=== PATIENT | female | born 1985 | race Caucasian/White ===

== ENCOUNTER 2024-10-05 14:01 | Emergency (ER) | payer OTHER, SELFPAY ==
[2024-10-05 14:10] VITALS: BP 130/71; PULSE 73; RESP 18; TEMP 36.4; O2SAT 100
--- NOTE | 2024-10-05 14:12 | ED.WOUNDLAC ---
HPI - Wound/Laceration General Chief Complaint: Wound/Laceration Stated Complaint: Laceration to Left Index Finger Time Seen by Provider: 10/05/24 14:12 Source: patient and RN notes reviewed Mode of arrival: ambulatory Limitations: no limitations History of Present Illness HPI narrative: 39-year-old female presents Express Care complaining of laceration left index finger. Patient states she was at work and while at lunch she was grabbing a plate of the cabinet when the plate fell and shattered slicing her left index finger. Patient denies any other injuries. Patient tetanus is not up-to-date. Patient denies any numbness or tingling or any other injuries. 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 Related Data Allergies Allergy/AdvReac Type Severity Reaction Status Date / Time iohexol (From contrast - CT, Allergy Intermediate Hives Verified 10/05/24 14:30 X-RAY) Penicillins Allergy Unknown rash Unverified 10/05/24 14:30 Review of Systems Review of Systems: CONSTITUTIONAL: Denies fever, chills, or sweats. EYES: Denies visual changes, redness, or discharge. ENT: Denies rhinorrhea, congestion, sore throat, or otalgia. CARDIOVASCULAR: Denies chest pain, palpitations, or edema. RESPIRATORY: Denies cough or dyspnea. GASTROINTESTINAL: Denies abdominal pain, nausea, vomiting, or diarrhea. GENITOURINARY: Denies dysuria or hematuria. SKIN: Denies rash or itching. Positive for laceration. MUSCULOSKELETAL: Denies back pain, joint pain, or myalgia. NEUROLOGIC: Denies headache, numbness, or weakness. PSYCHIATRIC: Denies anxiety or depression. All other systems reviewed are negative, except as documented in HPI. PMFSH Comments At the time of my signature, I reviewed and agree with the nursing past medical, surgical, social, and family history. There is no relevant family history pertinent to the patient complaint. Exam Narrative: GENERAL: This is a well-nourished, well-developed adult, in no apparent distress. They are non ill-appearing, nontoxic appearing. HEAD: normocephalic, atraumatic. EYES: Sclera clear/white. Conjunctiva normal. Vision is grossly intact. Extraocular movements intact EARS: External ears normal, Hearing grossly intact. NOSE: External nose normal THROAT: Mucous membranes moist, NECK: Neck supple, CARDIOVASCULAR: Regular rate and rhythm RESPIRATORY: Respiratory rate normal, respiratory effort nonlabored, no respiratory distress SKIN: Left index finger: Laceration to the palmar surface that is medial to the PIP joint measuring approximately 1 cm. Patient is able to flex and extend her left index finger against resistance at the PIP, DIP, and MCP joint. Normal range of motion of left index finger. Capillary refill less 2 seconds. Neurovascular status intact distal injury. Left radial pulse 2 +and palpable. Patient can make a fist, stop sign, okay sign, thumbs-up sign. Radial ulnar nerve distribution intact. Nail is intact. NEURO: awake, alert, and oriented to person, place and time. There were no obvious focal neurologic abnormalities. EXTREMITIES: No joint tenderness, effusion, or edema noted. Course Course Emergency Course: Portions of this record may have been created with voice recognition software Level of Care: Express Care Visit Vital Signs Vital signs: Vital Signs Temperature 97.6 F 10/05/24 14:10 Pulse Rate 73 10/05/24 14:10 Respiratory Rate 18 10/05/24 14:10 Blood Pressure 130/71 10/05/24 14:10 Pulse Oximetry 100 10/05/24 14:10 Oxygen Delivery Room Air 10/05/24 14:10 Temperature 97.6 F 10/05/24 14:10 Pulse Rate 73 10/05/24 14:10 Respiratory Rate 18 10/05/24 14:10 Blood Pressure 130/71 10/05/24 14:10 Pulse Oximetry 100 10/05/24 14:10 Oxygen Delivery Room Air 10/05/24 14:10 Reviewed Procedures Laceration Laceration 1: Date: 10/05/24 Time: 14:15 Site: hand (Index finger) Side (If applicable): left Size (cm): 1 Description: linear Depth: simple, single layer Local Anesthetic: lidocaine 1% Amount of anesthesia used (mL): 2 Pre-repair: wound explored and irrigated extensively ====== Skin Level ====== Skin layer closed with: nylon Size (cm): 5-0 Number of sutures: 3 Technique: simple, interrupted ====== Subcutaneous Layer ====== ====== Muscle Layer ====== ====== Tendon Layer ====== Dressing: Nonadherent dressing. MDM - Wound/Laceration MDM Narrative Medical decision making narrative: Successful laceration repair left index finger. Neuro vascular status intact distal to the injury. No evidence of tendon injury. Nail bed is intact. Normal function of left index finger. Report flex lead treat with doxycycline, patient has allergy to penicillin is unsure if she has ever had a cephalosporin. Patient's tetanus is updated today. Discussed physical exam findings. Advised supportive measures and signs/symptoms to go to the ER. Pt is appropriate for outpt treatment and f/u. Differential Diagnosis Differential diagnosis: Likely laceration, abrasion, avulsion of skin and other (Tendon injury) Critical Care Time Critical Care Time Critical Care Time: No Discharge Plan Discharge Clinical Impression: Finger laceration Patient Disposition: Home Condition: Stable Instructions: Antibiotic Form, Care For Your Stitches (DC), Finger Laceration (ED) Additional Instructions: Your sutures need to be removed in 10-14 days. ?Wear the dressing that has been applied for the first 24 hours to allow a scab to start forming. ?After this, you may remove and wash as normal with mild soap and water. Do not soak or scrub the wound. Avoid dirty water to the wound has healed completely. Do NOT wash with peroxide or alcohol. Apply Vaseline daily. Keep the wound dry covered with a non adherent dressing such as a Band-Aid. Take doxycycline as directed. Please wear sunscreen if her going to be outside while taking doxycycline. Tylenol or ibuprofen as needed for pain. Go to ER any signs of infection such as redness, swelling, increased pain, or drainage. ?Follow-up with hand specialist if you develops any numbness tingling, or finger dysfunction. Patient Language: Indonesian Prescriptions: New doxycycline monohydrate 100 mg capsule 100 mg PO BID 7 Days Qty: 14 0RF Follow-up/Referrals: Jeovanny Nino MD [Physician] - Harms,German Padron M.D. [Primary Care Provider] - Time of Disposition: 14:48
--- OUTSIDE RECORDS SUMMARY | 2024-10-05 14:13 | XMS_ITS | Encounter Summary ---
Author Organization [facility] Address [address] [place] [id number] Care Team Providers Care Fruit Room Hand Name Role Phone German Ndiaye MD Primary Care Provider [phone] Encounter Details Date Type Department Care Team (Late st Contact Info) Description 12/29/2023 [facility] Message Enc [address] [address] Lorie Perez, [address] [place] [address] Visit Follow Up Social History Tobacco Use Types Packs/Day Years Used Date Smoking Tobacco: Never Smokeless Tobacco: Never Alcohol Use Standard Drinks/Week Comments Yes 0 (1 standard drink = 0.6 oz pur e alcohol) Occasionally Comments Unknown Sex and Gender Information Value Date Recorded Sex Assigned at Not on file Legal Sex Female 4:25 PM [employer] Gender Identity Not on file Sexual Orientation Not on file documented as of this encounter Plan of Treatment Not on file documented as of this encounter Visit Diagnoses Not on filedocumented in this encounter Care Teams Fruit Room Hand Relationship Specialty Start Date End Date [place] [address] PCP - General INTERNAL MEDICINE 12/29/23 documented as of this encounter
--- OUTSIDE RECORDS SUMMARY | 2024-10-05 14:13 | XMS_ITS ---
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
--- OUTSIDE RECORDS SUMMARY | 2024-10-05 14:13 | XMS_ITS | Clinical Summary ---
Author Organization [facility] [address] Address [address] [place] [address] Phone Care Team Providers Care Retail Salesworker Name Role Phone German Ndiaye MD Primary Care Provider [phone] iDmple Pickett RN Unavailable [phone] Allergies Active Allergy Reactions Criticality Noted Date Comments Iodinated Contrast Media Hives Medium 09/27/2019 Penicillin G Penicillins Medications melatonin 5 mg tablet Take 1 tablet (5 mg total) by mouth as needed Active acetaminophen-as pirin-caffeine (EXCEDRIN MIGRAINE) 250-250-65 mg per tablet Take 1 tablet by mouth as needed Active Active Problems Problem Noted Date Diagnosed Date Sebaceous cyst 08/03/2024 Assessment & Plan (08/03/2024 9:07 AM CDT): Given the increase in size we will set the patient up for excision. We have offered her options of doing this in the office under local anesthetic or in the hospital with some light sedation. She is comfortable just doing this in the office. We will set her up for this. We have discussed postoperative restrictions. All questions answered. Class 1 obesity due to exces s calories without serious comorbidity with body mass index (BMI) of 31.0 to 31.9 in adult 08/31/2023 Assessment & Plan (08/31/2023 3:27 PM CDT): Discussed monitoring portion sizes and better tracking intake. Briefly reviewed total daily energy expenditure encouraged her to increase dietary protein. She prefers to avoid any medications used for weight loss. Will check thyroid function testing Annual physical exam 10/28/2020 Assessment & Plan (08/31/2023 3:27 PM CDT): Preventive exam; reviewed recommended preventive screenings and vaccinations. Encourage annual flu vaccine. Wear sunscreen/protective clothing when outdoors. Following with shoe dyer annually. Assessment & Plan (10/28/2020 2:14 PM CDT): Pap last month Mammogram at age 40 No fam hx of breast/colon ca. Vaccinated for covid-19 Discussed influenza vaccine Rectus diastasis of lower abdomen 10/28/2020 Assessment & Plan (10/28/2020 2:13 PM CDT): Previously evaluated by plastics for small umbilical hernia. No surgical intervention required. Patient would like to first try core strengthening exercises and circuit training at the gym. Discussed benefits of PT evaluation. Patient will notify office if/when she would like a PT referral. Encounter for screening for lipid disorder 10/28 Assessment & Plan (08/31/2023 3:27 PM CDT): Cholesterol is well controlled. Reviewed labs with patient Assessment & Plan (10/28/2020 2:12 PM CDT): Reviewed previous labs. Will check labs today Discussed focusing on limiting bad fats in the diet and using exercise as a way to improve cholesterol. Reviewed exercise recommendations and red flags warranting further evaluation. 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 Continues to avoid NSAIDs. Blood pressure is well controlled. Will continue to monitor Assessment & Plan (10/28/2020 2:15 PM CDT): Follows with [facility] transplant center every 6 months. Resolved Problems Problem Noted Date Diagnosed Date Resolved Date BMI 29.0-29.9,adult 10/28/2020 08/31/19 24 Assessment & Plan (10/28/2020 2:16 PM CDT): Discussed healthy diet and importance of regular physical activity. Encounters Date Type Department Care Team Description 08/17/2024 11:10 AM CDT - 08/17/2024 11:59 PM CDT Hospital Encounter [address] [address] Sebaceous cyst Discharge Disposition: Discharge to home or self care 08/17/2024 10:40 AM CDT Procedure visit [address] [place] [address] Primo Rubalcava MD Sebaceous cyst (Primary Dx) 08/03/2024 8:50 AM CDT Office Visit [address] [place] [address] rPimo Rubalcava MD Sebaceous cyst 07/17/2024 8:36 AM CDT - 07/17/2024 11:59 PM CDT Hospital Encounter [facility] [address] [place] [address] Sebaceous cyst of left axilla Discharge Disposition: Discharge to home or self care 07/17/2024 Results [facility] [address] [id number] German Ndiaye MD Axillary Left Non-Breast from Last 3 Months Immunizations Immunization Administration Dates Next Due Influenza, Quadrivalent, Spl it, Preservative Free, Intramuscular 12/31/2015 Influenza, Trivalent, IM (MDV) 12/13/2008 Influenza, Unspecified 06/14/2023(Deferr ed: Patient Refused),01/14/2023(Deferred: Patient Refused),12/13/2021(Deferred: Patient Refused),10/28/2020(Deferred: Patient Refused),03/15/2020(Deferred: Patient Refused),03/15/2019(Deferred: Patient Refused),03/15/2018(Deferred: Patient Refused),12/10/2017(Deferred: Patient Refused),03/15/2017(Deferred: Patient Refused),12/13/2016 Tdap 05/05/2014,02/01/2009 Surgical History Surgery Date Site/Laterality Comments OTHER SURGICAL HISTORY Teeth extraction OTHER SURGICAL HISTORY 03/15/2009 - 03/14/2010 : 6 hr labor OTHER SURGICAL HISTORY 03/15/2014 - 03/14/2015 : 9 hr labor NEPHRECTOMY 03/15/2019 - 03/14/2020 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 .; Outcome: 37W4D week 7lb(s) 13 oz Male Family History Medical History Relation Name Comments Diabetes Father Remington Diabetes mellit us; Hyperlipidemia Father Remington High choleste rol; Hypertension Father Remington Hypertension; Diabetes Maternal Grandmother Diabete s mellitus; Hyperlipidemia Maternal Grandmother High cholesterol; Hypertension Mother Maria Guadalupe Hypertension; Breast cancer Other 1 Cancer, breast ; Other Other 2 No family histo ry of Cancer, endometrial; Other Other 3 No family histo ry of Ovarian cancer; Hypertension Other 4 Family history of Hypertension; RED 10/12/2013 -Mother, father, MGM, PGF Osteoporosis Other 5 Family history of Osteoporosis; RED 10/12/2013 -Mother, MGM Prostate cancer Paternal Grandfather Canc er, prostate; Relation Name Status Comments Father Remington Maternal Grandmother Mother Maria Guadalupe Other 1 Other 2 Other 3 Other 4 Other 5 Paternal Grandfather Social History Tobacco Use Types Packs/Day Years Used Date Smoking Tobacco: Never Smokeless Tobacco: Never Tobacco Cessation:Counseling Given: Not Answered Alcohol Use Standard Drinks/Week Comments Not Currently 1 (1 standard drink = 0.6 oz pur e alcohol) Social Connection and Isolation Panel [NHANES] A nswer Date Recorded In a typical week, how many times do you talk on the phone with family, friends, or neighbors? Three times a week 11/10/19 How often do you get togethe r with friends or relatives? Twice a week 11/10/2019 How often do you attend chur or mu-ism services? 1 to 4 times per year 11/10/2019 Do you belong to any clubs o r organizations such as evangelical groups, unions, fraternal or athletic groups, or school groups? No 11/10/2019 How often do you attend meet ings of the clubs or organizations you belong to? Never 11/10/2019 Are you , , di vorced, , never , or living with a partner? 11/10/2019 Overall Financial Resource Strain (CARDIA) Answe r Date Recorded How hard is it for you to pa y for the very basics like food, housing, medical care, and heating? Not hard at all 11/10/2019 PHQ-2 Answer Date Recorded PHQ-2 Total Score (If total score is 3 or more points, staff should administer the PHQ-9) 0 08/31/2023 Hunger Vital Sign Answer Date Recorded Within the past 12 months, y ou worried that your food would run out before you got the money to buy more. Never true 11/10/19 20 Within the past 12 months, t he food you bought just didn't last and you didn't have money to get more. Never true 11/10/2019 PRAPARE - Transportation Answer Date Re corded In the past 12 months, has l ack of transportation kept you from medical appointments or from getting medications? No 10/14 In the past 12 months, has l ack of transportation kept you from meetings, work, or from getting things needed for daily living? 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 Gender Identity Not on file Sexual Orientation Straight 05/23/2019 10 :35 PM CDT Occupation Industry Job Start Date Job End Date RN Not on file Not on file Not on file Obstetrics History Para Term AB IAB SAB Ectopic Multiple Livin g Live Births 2 2 2 0 0 2 Date Outcome GA Total Labor Labor/2nd/3rd Weight Sex Type Anes PTL Martha A1 A5 Name Clin Term Term Last Filed Vital Signs Vital Sign Reading Time Taken Comments Blood Pressure 134/87 08/17/2024 10:39 AM CDT Pulse 72 08/17/2024 10:39 AM CDT Temperature 37 C (98.6 F) 08/17/2024 10:39 AM CDT Respiratory Rate 16 08/31/2023 2:34 PM CDT Oxygen Saturation 98% 08/03/2024 8:39 AM CDT Inhaled Oxygen Concentration - - Weight 93.7 kg (206 lb 8 oz) 08/03/2024 8:39 AM CDT Height 170.2 cm (5' 7) 08/03/2024 8:39 AM CDT Body Mass Index 32.34 08/03/2024 8:39 AM CDT Plan of Treatment Health Maintenance Due Date Last Done Comments Hepatitis B Screening 05/16/2003 Pneumococcal vaccine <65 (1 of 2 - PCV) 2004 Zoster Vaccine (1 of 2) 2004 Covid-19 Vaccine (3 - Moderna risk series) 05/01/2020 04/03/2020, 03/06/2020 DTaP/Tdap/Td Vaccine (3 - Td or Tdap) 05/05/2024 05/05/2014, 02/01/2009 Depression Screening 08/30/2024 08/31/2023, 10/28/2020, 08/22/2019, Additional history exists Influenza Vaccine (#1) 2024 7, 12/31/2015, 12/13/2008 Regular Well Visit/Exam 18-64 01/13/2025 01/14/2024, 01/06/2023, 10/15/2021, Additional history exists Cervical Cancer Screening 10/15/2026 10/15/2021, Hepatitis C Screening Completed 10/16/2019 , 05/22/2019, 10/13/2013 HPV Vaccines Aged Out No longer eligi ble based on patient's age to complete this topic Varicella Vaccines Discontinued Procedures Procedure Name Priority Date/Time Associated Diagnosis Comments SURGICAL PATHOLOGY Routine 08/17/2024 12 :17 PM CDT Sebaceous cyst US AXILLARY NON-BREAST LEFT Schedule Routine, Read Routine (OP Routine) 07/17/2024 9:06 AM CDT Sebaceous cyst of left axilla PAP AND HIGH RISK HPV, REFLEX TO GENOTYPING Routine 10/15/2021 12:39 PM CDT Screening for malignant neoplasm of the cervix HEPATITIS C ANTIBODY Routine 10/16/2019 7:55 AM CDT Kidney donor from Last 3 Months or Most Recently Relevant to Health Maintenance Results * Surgical pathology (08/17/2024 12:17 PM CDT) Tissue (Skin - Cyst / Tag / Debridement) 08/17/2024 12:17 PM CDT 08/18/2024 12:17 PM CDT Narrative PATHOLOGY CH - 08/21/2024 11:26 AM CDT EPIC results best viewed via link to PDF [facility] Department of Pathology [address] [place] [id number] Note to Patients: This report may contain a detailed description of human tissue sent by a health care provider to the laboratory for pathologic evaluation. The content of this report is essential for diagnosis and may provide important critical findings. This information may be unfamiliar to patients to review without a medical professional present. It is advised that the patient review this report in the presence of a health care provider who can answer questions and explain the details. Final Report Patient Name: NICKI SMITH Address: [address] [place] [address] Gender: F : 1985 (Age: 39) Service: Location: [facility] #: [id number] Patient Type: SPECIMEN Taken: 08/17/2024 Received: 08/18/2024 Accessioned: 08/18/2024 Reported: 08/21/2024 Physician(s):Primo Rubalcava MD Diagnosis: Cyst, left armpit, excision: - Consistent with epidermal inclusion cyst John Rosales M.D. Report Electronically Reviewed and Signed Out By John Rosales M.D. 08/21/2024 11:26:42 Specimen(s) Received: A: Left axilla Microscopic Description: Microscopic examination substantiates the above diagnosis. Clinical History: Sebaceous cyst Procedure: skin, excision Gross Description: Received in a single formalin filled container labeled with NICKI LUIS and cyst left armpit. It is an elliptical shaped piece of pale houston skin measuring 1 x 0.6 cm with underlying fat measuring 1 cm. A intact cyst with [place] waxy contents is present measuring 6 mm. All in 1 cassette. Anatoliy Worlye R.N. P.Neto./Ronaldo Jeffery M.D. REPORT IMAGES AND SCANNED DOCUMENTS, IF INCLUDED, ONLY VIEWABLE IN PDF VERSION OF REPORT The performance characteristics of some immunohistochemical stains, fluorescence in-situ hybridization tests and immunophenotyping by flow cytometry cited in this report (if any) were determined by the Surgical Pathology Department at [facility] as part of an ongoing manager of quality program and in compliance with federally mandated regulations drawn from the Clinical Laboratory Improvement Act of 1988 (CLIA '88). Some of these tests rely on the use of analyte specific reagents and are subject to specific labeling requirements by the US Food and Drug Administration. Such diagnostic tests may only be performed in a facility that is certified by the Department of Health and Human Services as a high complexity laboratory under CLIA '88. The FDA has determined that such clearance or approval is not necessary. This test is used for clinical purposes. It should not be regarded as investigational or for research. Nevertheless, federal rules concerning the medical use of analyte specific reagents require that the following disclaimer be attached to the report: This test was developed and its performance characteristics determined by the Surgical Pathology Department [facility]. It has not been cleared or approved by the U. S. Food and Drug Administration. Note for decalcified specimens: This assay has not been validated on decalcified tissues. Results should be interpreted with caution given the possibility of false negativity on decalcified specimens Primo Rubalcava MD LAB PATHOLOGY OR DERABLES Final Result Performing Organization Address City/State/[facility] [place] Phone Number PATHOLOGY [address] [place] [address] * US Axillary Left Non-Breast (07/17/2024 9:06 AM CDT) Anatomical Region Laterality Modality Upper Extremities Left Ultrasound 07/17/2024 12:1 9 PM CDT Impressions 07/17/2024 12:19 PM CDT Complex cystic lesion within the skin most likely represents a sebaceous cyst and is benign. Clinical correlation advised. Electronically signed by: Daysi Landon M.D. Narrative 07/17/2024 12:19 PM CDT US AXILLARY NON-BREAST LEFT HISTORY: left axillary ultrasound. TECHNIQUE: Longitudinal transverse real-time scans are obtained for the region of concern left axilla. COMPARISON: 12/16/2017. FINDINGS: Scanning of the region of interest demonstrates a mixed echotexture lesion within the skin measuring 7 mm x 2 mm x 4 mm. A tract to the skin surface is not confidently visualized. There is no evidence of color flow. No other sonographic abnormalities are appreciated. Procedure Note Daysi Landon MD - 07/17/2024 US AXILLARY NON-BREAST LEFT HISTORY: left axillary ultrasound. TECHNIQUE: Longitudinal transverse real-time scans are obtained for the region of concern left axilla. COMPARISON: 12/16/2017. FINDINGS: Scanning of the region of interest demonstrates a mixed echotexture lesion within the skin measuring 7 mm x 2 mm x 4 mm. A tract to the skin surface is not confidently visualized. There is no evidence of color flow. No other sonographic abnormalities are appreciated. IMPRESSION: Complex cystic lesion within the skin most likely represents a sebaceous cyst and is benign. Clinical correlation advised. Electronically signed by: Daysi Landon M.D. us German Ndiaye MD IMG US PROCEDURES Final R esult * Pap and High Risk HPV, reflex to Genotyping (10/15/2021 12:39 PM CDT) Thin prep (Pap test) 10/15/2021 12:39 PM CDT 10/15/2021 12:39 PM CDT Narrative PATHOLOGY CH - 10/20/2021 11:21 AM CDT [facility] Department of Pathology [address] [place] [id number] Final Report with Addendum Note to Patients: This report may contain a detailed description of human tissue sent by a health care provider to the laboratory for pathologic evaluation. The content of this report is essential for diagnosis and may provide important critical findings. This information may be unfamiliar to patients to review without a medical professional present. It is advised that the patient review this report in the presence of a health care provider who can answer questions and explain the details. Patient Name: NICKI SMITH Address: [address] [place] [address] Gender: F : 1985 (Age: 36) Service: Laboratory Location: Lab [facility] #: [id number] Patient Type: Ref Lab Taken: 10/15/2021 Received: 10/15/2021 Accessioned:: 10/16/2021 Reported: 10/20/2021 Physician(s): MD Nicki Villegas MD Diagnosis: Source of Specimen: SCREENING THIN PREP IMAGED PAP w/ HPV Specimen Adequacy: - Satisfactory for evaluation; endocervical/transformation zone component present General Category: - Negative for intraepithelial lesion or malignancy MICHAEL Parra(ASCP) Report Electronically Reviewed and Signed Out By MICHAEL Parra(ASCP) 10/20/2021 11:21:51Addenda: HPV Test Interpretation NEGATIVE for types 16, 18, 31, 33, 35, 39, 45, 51, 52, 56, 58, 59, 66 and 68. Test performed utilizing Gen-Probe Aptima assay. MICHAEL Balderrama(ASCP)Report Electronically Reviewed and Signed Out By MICHAEL Balderrama(ASCP) 10/16/2021 16:02:57 Specimen(s) Received: A: SCREENING THIN PREP IMAGED PAP w/ HPV Clinical History: Menstrual History: Previous Negative Pap: 05/2017 The Pap test is a screening test used to aid in the detection of cervical cancer and its precursors. It should not be the sole means by which malignant and premalignant lesions are diagnosed. Both false negative and false positive results may occur. It also has poor sensitivity for the detection of endometrial lesions and should not be used to evaluate suspected endometrial abnormalities. For these reasons it is most important to obtain Pap tests at regular intervals. The performance characteristics of some immunohistochemical stains, fluorescence in-situ hybridization tests and immunophenotyping by flow cytometry cited in this report (if any) were determined by the Surgical Pathology Department at [facility] as part of an ongoing manager of quality program and in compliance with federally mandated regulations drawn from the Clinical Laboratory Improvement Act of 1988 (CLIA '88). Some of these tests rely on the use of analyte specific reagents and are subject to specific labeling requirements by the US Food and Drug Administration. Such diagnostic tests may only be performed in a facility that is certified by the Department of Health and Human Services as a high complexity laboratory under CLIA '88. The FDA has determined that such clearance or approval is not necessary. This test is used for clinical purposes. It should not be regarded as investigational or for research. Nevertheless, federal rules concerning the medical use of analyte specific reagents require that the following disclaimer be attached to the report: This test was developed and its performance characteristics determined by the Surgical Pathology Department [facility]. It has not been cleared or approved by the U. S. Food and Drug Administration. Nicki Snatoyo MD LAB CYTOLOGY ORDERABL ES Final Result PATHOLOGY [address] [place] [address] * Hepatitis C antibody (10/16/2019 7:55 AM CDT) Hep C Ab Nonreactive Nonreactive [facility] Comment:Antibodies to HCV no t detected. Does NOT exclude the possibility of recent exposure to HCV. Blood specimen (specimen) 10/16/2019 7:55 AM CDT 10/16/2019 8:34 AM CDT Asael Contreras MD LAB MICROBIOLOGY - GENERAL ORDERABLES Edited Result - Final Performing Organization Address City/[facility] de Phone Number [facility] Department [place] [address] from Last 3 Months or Most Recently Relevant to Health Maintenance Insurance [employer] [facility] [employer] Care Teams Retail Salesworker Relationship Specialty Start Date End Date German Ndiaye MD [address] [place] [address] PCP - General Family Medicine 06/02/17 Dimple Pickett, RN [address] [address] [place] 04/14/19
--- OUTSIDE RECORDS SUMMARY | 2024-10-05 14:13 | XMS_ITS | Clinical Summary ---
Author Organization [facility] Address [address] [place] [id number] Care Team Providers Care Sales And Marketing Assistant Name Role Phone German Ndiaye MD Primary Care Provider [phone] Allergies Active Allergy Reactions Criticality Noted Date Comments Iodine Hives 12/29/2023 Nsaids Other (see comment) Medium 12/29/2023 Refrain from administering due to history of only having 1 kidney Penicillins Rash Medium 12/29/2023 Medications methylPREDNISol one, FLAVIA, (MEDROL DOSEPAK) 4 MG tabletIndicatio ns:Patellofemor al pain syndrome of right knee 4 mg Oral Tablet Therapy Pack. 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 Immunizations Immunization Administration Dates Next Due MODERNA COVID-19 (12+) MRNA, LNP-S, PF, 100 MCG/ 0.5 ML DOSE 04/03/2020,03/06/2020 Social History Tobacco Use Types Packs/Day Years Used Date Smoking Tobacco: Never Smokeless Tobacco: Never Tobacco Cessation:Counseling Given: Not Answered Alcohol Use Standard Drinks/Week Comments Yes 0 (1 standard drink = 0.6 oz pur e alcohol) Occasionally Comments Unknown Sex and Gender Information Value Date Recorded Sex Assigned at Not on file 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 Gender Identity Not on file Sexual Orientation Not on file Last Filed Vital Signs Vital Sign Reading Time Taken Comments Blood Pressure - - Pulse - - Temperature - - Respiratory Rate - - Oxygen Saturation - - Inhaled Oxygen Concentration - - Weight 95.3 kg (210 lb) 12/29/2023 1:28 PM CDT Height 170.2 cm (5' 7) 12/29/2023 1:28 PM CDT Body Mass Index 32.89 12/29/2023 1:28 PM CDT Plan of Treatment Health Maintenance Due Date Last Done Comments Cervical Cancer Screening Pa p Smear (Age 30 to 64) Every 3 Years 1985 Annual Physical 1988 Hepatitis C 05/16/2003 Hepatitis B Vaccines (1 of 3 - 19+ 3-dose series) 2004 HPV Vaccines (1 - 3-dose SCD M series) 2012 Cervical Cancer Screening Pa p with HPV Testing (Age 30 to 64) Every 5 Years 05/16/2015 Cervical Cancer Screening wi th HPV 05/16/2015 COVID-19 Vaccine ( - 2023-2 5 season) 2023 04/03/2020, 03/06/2020 DTaP, Tdap and Td Vaccines ( 3 - Td or Tdap) 05/05/2024 05/05/2014, 02/01/2009 Meningococcal B Vaccine Aged Out No l onger eligible based on patient's age to complete this topic Meningococcal Vaccine Aged Out No bozena bridgette eligible based on patient's age to complete this topic Pneumococcal Vaccine: Pediatrics (0 to 5 Years) and At-Risk Patients (6 to 49 Years) Aged Out No longer eligible b ased on patient's age to complete this topic RSV Immunizations Under 20 Months Aged Out No longer eligible b ased on patient's age to complete this topic Insurance [facility] Care Teams Sales And Marketing Assistant Relationship Specialty Start Date End Date German Ndiaye MD [address] [place] [address] PCP - General INTERNAL MEDICINE 12/29/23
--- OUTSIDE RECORDS SUMMARY | 2024-10-05 14:13 | XMS_ITS | Clinical Summary ---
Author Organization [facility] [employer] Address [address] [place] [address] Care Team Providers Care Form Builder Helper Name Role Phone German Ndiaye MD Primary Care Provider [phone] Source Comments [facility] [employer]non-owned Affiliates and Associated Physician Practices is amultiple site organization consisting of ambulatory clinics and hospital sitesin [place], [place], [place] and [place]. This disclosure is being madepursuant to the Care Everywhere program and may not contain all information available regarding this patient. Last updated 17.[facility] [employer] Allergies Active Allergy Reactions Criticality Noted Date Comments Penicillin G Rash Medium Medications * Be aware that medications may not be up to date on this document. Alwaysverify current medications with the patient. No known medications Active Problems No known active problems Social History Tobacco Use Types Packs/Day Years Used Date Smoking Tobacco: Never Smokeless Tobacco: Never Comments No Sex and Gender Information Value Date Recorded Sex Assigned at Not on file Legal Sex Female 6:24 PM EXTRA HAND Gender Identity Not on file Sexual Orientation Not on file Last Filed Vital Signs Vital Sign Reading Time Taken Comments Blood Pressure 102/60 09/17/2017 7:58 AM CDT Pulse 83 09/17/2017 7:58 AM CDT Temperature 36.7 C (98.1 F) 09/17/2017 7:58 AM CDT Respiratory Rate - - Oxygen Saturation - - Inhaled Oxygen Concentration - - Weight 72.6 kg (160 lb) 09/17/2017 7:58 AM CDT Height 170.2 cm (5' 7) 09/17/2017 7:58 AM CDT Body Mass Index 25.06 09/17/2017 7:58 AM CDT Plan of Treatment Health Maintenance Due Date Last Done Comments HIV SCREENING 2000 HEPATITIS C SCREENING 05/11/2003 DTAP/TDAP/TD VACCINES (1 - Tdap) 2004 HEPATITIS B VACCINE (1 of 3 - 19+ 3-dose series) 2004 HPV VACCINE (1 - 3-dose SCDM series) 2012 COVID-19 VACCINE (1 - 2023-2 5 season) 2023 DEPRESSION SCREENING 03/15/2024 INFLUENZA VACCINE (#1) 2024 6, 12/13/2008 ZOSTER VACCINE (1 of 2) 05/16/2035 HIB VACCINE Aged Out No longer eligi ble based on patient's age to complete this topic MENINGOCOCCAL (Group B) VACCINE SHARED DECISION-MAKING Aged Out No longer eligible based on patient's age to complete this topic MENINGOCOCCAL GROUPS A/C/Y/W VACCINE Aged Out No longer eligible b ased on patient's age to complete this topic PNEUMOCOCCAL VACCINE Aged Out No long er eligible based on patient's age to complete this topic Insurance JUSTEN JUSTEN Care Teams Form Builder Helper Relationship Specialty Start Date End Date German Ndiaye MD [address] [place] [id number] PCP - General Internal Medicine 09/17/17
--- OUTSIDE RECORDS SUMMARY | 2024-10-05 14:13 | XMS_ITS | Encounter Summary ---
Author Organization [facility] Address [address] [place] [address] Care Team Providers Care Certified Appliance Service Technician Name Role Phone German Ndiaye MD Primary Care Provider [phone] Encounter Details Date Type Department Care Team (Late st Contact Info) Description 02/04/2024 [place] Message Enc [address] [address] Lorie Perez, [address] [place] [phone] MRI results Social History Tobacco Use Types Packs/Day Years Used Date Smoking Tobacco: Never Smokeless Tobacco: Never Alcohol Use Standard Drinks/Week Comments Yes 0 (1 standard drink = 0.6 oz pur e alcohol) Occasionally Comments Unknown Sex and Gender Information Value Date Recorded Sex Assigned at Not on file Legal Sex Female 4:25 PM APPLICATION PACKAGER Gender Identity Not on file Sexual Orientation Not on file documented as of this encounter Plan of Treatment Not on file documented as of this encounter Visit Diagnoses Not on filedocumented in this encounter Care Teams Certified Appliance Service Technician Relationship Specialty Start Date End Date German Ndiaye MD [place] [address] PCP - General INTERNAL MEDICINE 12/29/23 documented as of this encounter
--- OUTSIDE RECORDS SUMMARY | 2024-10-05 14:13 | XMS_ITS | Encounter Summary ---
Author Organization [facility] Address [address] [place] [address] Care Team Providers Care French Professor Name Role Phone German Ndiaye MD Primary Care Provider [phone] Encounter Details Date Type Department Care Team (Late st Contact Info) Description 08/16/2020 Lab Requisition [facility] [address] [place] [address] Stepan Walden MD [address] [address] Social History Tobacco Use Types Packs/Day Years Used Date Smoking Tobacco: Never Assessed Comments No Sex and Gender Information Value Date Recorded Sex Assigned at Not on file 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 Gender Identity Not on file Sexual Orientation Not on file documented as of this encounter Plan of Treatment Not on file documented as of this encounter Procedures Procedure Name Priority Date/Time Associated Diagnosis Comments DERMATOPATHOLOGY Routine 08/14/2020 12:0 0 AM CDT documented in this encounter Results * DERMATOPATHOLOGY (08/14/2020 12:00 AM CDT) Case Report Dermatopathology Report Case: [id number] Authorizing Provider: Stepan Walden MD Collected: 08/14/2020 12:00 AM Ordering Location: [facility] Received: 08/16/2020 10:51 AM Pathologist: Penny Rothman MD Specimen: Skin, right breast inferior 2:49 PM CDT DERMATOPATHOLOGY LABORATORY Final Diagnosis Specimen A. SKIN, right breast inferior: LENTIGINOUS MELANOCYTIC NEVUS, COMPOUND TYPE, IRRITATED (COMPOUND MELANOCYTIC NEVUS WITH ARCHITECTURAL DISORDER) (D22.5) NOT PRESENT AT SAMPLED MARGIN 2:49 PM CDT DERMATOPATHOLOGY LABORATORY at 1449 CDT Clinical History Nevus. SK. R/O atypical melanocytic lesion. Check margins. 2:49 PM CDT DERMATOPATHOLOGY LABORATORY Gross Description Specimen A: Received is one formalin filled container labeled with the patient's name and designated right breast inferior. The specimen consists of a shave biopsy measuring 5x5x1 mm, inked. Jar 0. 2:49 PM CDT DERMATOPATHOLOGY LABORATORY Microscopic Description Specimen A. SKIN, right breast inferior: This is a compound nevus. There is melanin pigment in the stratum corneum. There is architectural disorder characterized by a lentiginous proliferation of melanocytes between irregular nevus nests of cells along the dermal epidermal junction. There is underlying fibroplasia of the papillary dermis. The intradermal component is bland in appearance and matures with depth. (Compound Everett's Nevus or Compound Dysplastic Nevus) This lesion is not present at the sampled margin of the specimen. 2:49 PM CDT DERMATOPATHOLOGY LABORATORY Disclaimer An external and internal positive and negative controls are appropriate for the histochemical, immunohistochemical and immunofluorescence stain(s) in this case (if any), except where stated explicitly. The performance characteristics of the stain(s) cited in this report were developed and its performance characteristic determined by the Dermatopathology Laboratory at [facility], directed by Dr. Brianna Burton. These tests need not be, and therefore are not, approved by the [place] Food and Drug Administration. The tests are used for clinical purposes. Billing Codes Specimen Charges Stain Charges 59902 1 1 2:49 PM CDT DERMATOPATHOLOGY LABORATORY Embedded Images 2:49 PM CDT DERMATOPATHOLOGY LABORATORY Pathology/Cytolog y TISSUE SPECIMEN FROM SKIN / Unknown 08/14/2020 08/16/2020 10:51 AM CDT us Stepan Walden MD LAB - PATHOLOGY/CYTOLOGY ORDERAB LES Final Result DERMATOPATHOLOGY LABORATORY [facility] - Department of Dermatology [address] [phone] documented in this encounter Visit Diagnoses Not on filedocumented in this encounter Care Teams French Professor Relationship Specialty Start Date End Date [place] [address] PCP - General Internal Medicine 09/17/17 documented as of this encounter
--- OUTSIDE RECORDS SUMMARY | 2024-10-05 14:13 | XMS_ITS | Referral Summary ---
Author Organization [facility] [address] Address [address] [place] [address] Phone Care Team Providers Care Seed And Fertilizer Specialist Name Role Phone German Ndiaye MD Primary Care Provider [phone] Dimple Pickett RN Unavailable [phone] Encounters Date Type Department Care Team Description 08/17/2024 11:10 AM CDT - 08/17/2024 11:59 PM CD[place] [address] Sebaceous cyst Discharge Disposition: Discharge to home or self care 08/17/2024 10:40 AM CDT Procedure visit [address] [place] [address] Primo Rubalcava MD Sebaceous cyst (Primary Dx) 08/03/2024 8:50 AM CDT Office Visit [address] [place] [address] Primo Rubalcava MD Sebaceous cyst 07/17/2024 Results [facility] [address] [address] Greman Ndiaye MD US Axillary Left Non-Breast 07/17/2024 8:36 AM CDT - 07/17/2024 11:59 PM CDT Hospital Encounter [facility] [address] [place] [address] Sebaceous cyst of left axilla Discharge Disposition: Discharge to home or self care from Last 3 Months Allergies Active Allergy Reactions Criticality Noted Date [...] Wear sunscreen/protective clothing when outdoors. Following with radiologic technology program director annually. Assessment & Plan (10/28/2020 2:14 PM [...] Plan (10/28/2020 2:15 PM CDT): Follows with [facility] transplant center every 6 months. Resolved Problems Problem Noted Date Diagnosed Date Resolved Date BMI 29.0-29.9,adult 10/28/2020 08/31/19 Assessment & Plan (10/28/2020 2:16 PM CDT): Discussed healthy diet and importance of regular physical activity. Immunizations Immunization Administration Dates Next Due Influenza, Quadrivalent, Spl it, Preservative Free, Intramuscular 12/31/2015 Influenza, Trivalent, IM (MDV) 12/13/2008 Influenza, Unspecified 06/14/2023(Deferr ed: Patient Refused),01/14/2023(Deferred: Patient Refused),12/13/2021(Deferred: Patient Refused),10/28/2020(Deferred: Patient Refused),03/15/2020(Deferred: Patient Refused),03/15/2019(Deferred: Patient Refused),03/15/2018(Deferred: Patient Refused),12/10/2017(Deferred: Patient Refused),03/15/2017(Deferred: Patient Refused),12/13/2016 Tdap 05/05/2014,02/01/2009 Social History Tobacco Use Types Packs/Day Years [...] 11/10/2019 How often do you attend chur ch or jew services? 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 Gender Identity Not on file Sexual Orientation Straight 05/23/2019 10 :35 PM CDT Occupation Industry Job Start Date Job End Date RN Not on file Not on file Not on file Last Filed Vital Signs [...] 08/03/2024 8:39 AM CDT Plan of Treatment Not on file Procedures Procedure Name Priority Date/Time Associated Diagnosis [...] PATHOLOGY CH - 08/21/2024 11:26 AM CDT [facility] results best viewed via link to PDF [facility] Department of Pathology [address] [place] [address] Note to Patients: This report may [...] Final Report Patient Name: NICKI SMITH Address: [address] [place] [address], [place] [address] Gender: F : 1985 (Age: 39) Service: Location: N : [id number] [facility] #: [id number] Patient Type: SPECIMEN Taken: 08/17/2024 Received: 08/18/2024 [...] single formalin filled container labeled with NICKI SMITH and cyst left armpit. It is an elliptical shaped piece of pale houston skin measuring 1 x 0.6 cm with underlying fat measuring 1 cm. A intact cyst with houston waxy contents is present measuring 6 mm. All in 1 cassette. Anatoliy Worley R.N., P.A./Ronaldo Jeffery M.D. REPORT IMAGES AND SCANNED DOCUMENTS, IF INCLUDED, ONLY VIEWABLE IN PDF VERSION OF REPORT The performance characteristics of some immunohistochemical stains, fluorescence in-situ hybridization tests and immunophenotyping by flow cytometry cited in this report (if any) were determined by the Surgical Pathology Department at [facility] as part of an ongoing director quality assurance program and in compliance with federally mandated [...] characteristics determined by the Surgical Pathology Department [facility]. It has not been cleared or approved by the [place]. S. Food and Drug Administration. Note for decalcified specimens: This assay has not been validated on decalcified tissues. Results should be interpreted with caution given the possibility of false negativity on decalcified specimens Primo Rubalcava MD LAB PATHOLOGY OR DERABLES Final Result Performing Organization Address City/State/[facility] Co de Phone Number PATHOLOGY [address] [place] [address] * US Axillary Left Non-Breast (07/17/2024 9:06 [...] CDT 10/15/2021 12:39 PM CDT Narrative PATHOLOGY - 10/20/2021 11:21 AM CDT [facility] Department of Pathology [address] [place] [address] Final Report with Addendum Note to Patients: [...] the details. Patient Name: NICKI SMITH Address: [address] [place] [address] Gender: F : 1985 (Age: 36) Service: Laboratory Location: Lab [facility] #: [id number] Patient Type: Ref Lab Taken: 10/15/2021 Received: 10/15/2021 Accessioned:: 10/16/2021 Reported: 10/20/2021 Physician(s): MD Nicki Villegas MD Diagnosis: Source of Specimen: SCREENING THIN PREP IMAGED PAP w/ HPV Specimen Adequacy: - Satisfactory for evaluation; endocervical/transformation zone component present General Category: - Negative for intraepithelial lesion or malignancy MICHAEL Parra(ASCP) Report Electronically Reviewed and Signed Out By CANELO ParraASCP) 10/20/2021 11:21:51Addenda: HPV Test Interpretation NEGATIVE for types 16, 18, 31, 33, 35, 39, 45, 51, 52, 56, 58, 59, 66 and 68. Test performed utilizing Gen-Probe Aptima assay. MICHAEL Balderrama(ASCP)Report Electronically Reviewed and Signed Out By CANELO BalderramaASCP) 10/16/2021 16:02:57 Specimen(s) Received: A: SCREENING THIN [...] determined by the Surgical Pathology Department at [facility] as part of an ongoing director quality assurance program and in compliance with federally mandated [...] characteristics determined by the Surgical Pathology Department [facility]. It has not been cleared or approved by the U. S. Food and Drug Administration. us Nicki Santoyo MD LAB [place]OLOGY [place] [address] [place] [address] * Hepatitis C antibody (10/16/2019 7:55 AM CDT) Hep C Ab Nonreactive Nonreactive [facility] Comment:Antibodies to HCV no t detected. Does NOT exclude the possibility of recent exposure to HCV. Blood specimen (specimen) 10/16/2019 7:55 AM CDT 10/16/2019 8:34 AM CDT Asael Contreras MD LAB MICROBIOLOGY - GENERAL ORDERABLES Edited Result - Final Performing Organization Address [facility] Co de Phone Number [facility] [place] [address] from Last 3 Months or Most Recently Relevant to Health Maintenance Insurance [employer] GENERIC Member Subscriber Plan / Payer (Ef fective 2019-Present) Name:Nicki Smith Relation to Subscriber:Self Name:Nicki Smith Payer ID:[id number] Group ID:Not on file Type:COMMERCIAL Address: [facility] [phone]: [id number] [id number] [facility] TRANSPLANT [employer] Care Teams Seed And Fertilizer Specialist Relationship Specialty Start Date End Date German Ndiaye MD [address] [place] [address] PCP - General Family Medicine 06/02/17 Dimple [place], RN [address] [address] Dye Blender 04/14/19
[2024-10-05] MEDS: LIDOCAINE 1% LOCAL INJ 2 ML AMPUL 4 ML INFILTRATE (14:21)
[2024-10-05] MEDS: TETANUS,DIPHTHERIA,AC PERTUSSIS ADULT (0.5 ML) BOOSTRIX IM (14:21)
== END 2024-10-05 14:54 | disposition home or self-care (01) ==
PROVIDERS: PCP Family Medicine
DX: S61.211A Laceration without foreign body of left index finger without damage to nail, initial encounter (principal); W45.8XXA Other foreign body or object entering through skin, initial encounter; Y99.0 Civilian activity done for income or pay; Z23 Encounter for immunization; Z90.5 Acquired absence of kidney
CPT/HCPCS: 12001; 90471; 90715; 99203; G0463; J2003